=== PATIENT | male | born 1990 | race African-American/Black ===

== ENCOUNTER 2021-09-11 16:55 | Emergency (ER) | payer SELFPAY ==
[~2021-09-11] VITALS: Ht 165.1 cm; Wt 68.0 kg
--- NOTE | 2021-09-11 18:56 | NUR ---
THE PATIENT IS ALERT TO VERBAL STIMULI BY OPENING EYES AND DOING HAND GESTURES. UNABLE TO INSERT LINE OR GET URINE FROM THE PATIENT AT THIS TIME DUE TO PATIENT REFUSAL MANIFESTED BY SHAKING HANDS SIGN OF REFUSAL. DR SCHMITT MADE AWARE.
[2021-09-11] MEDS ORDERED: NALOXONE HCL 0.4 MG/ML AMPUL IV ONE (19:00)
[2021-09-11] MEDS ORDERED: IV NS 0.9% 1,000 ML BAG IV ONE (19:00)
[2021-09-11] MEDS ORDERED: diphenhydrAMINE HCL 50 MG/ML VIAL IM ONE (19:30)
[2021-09-11] MEDS ORDERED: HALOPERIDOL LACTATE INJ 5 MG/ML VIAL IM ONE (19:30)
--- NOTE | 2021-09-11 19:45 | NUR ---
blood work collected sent to lab
[2021-09-11 20:03] LABS: BASOPHILS % (AUTO) 0.5 % (0.0-2.0); HEMATOCRIT 38 % (39-51); HEMOGLOBIN 12.1 g/dL (13.5-17.5); LYMPHOCYTES # (AUTO) 2.5 K/uL (0.8-4.8); LYMPHOCYTES % (AUTO) 28.4 % (20.0-44.0); MEAN CORPUSCULAR HGB CONC 32 g/dl (31.0-36.0); MEAN CORPUSCULAR VOLUME 78 fL (80-96); MONOCYTES % (AUTO) 11.5 % (2.0-12.0); NEUTROPHILS # (AUTO) 5.1 K/uL (1.8-8.9); NEUTROPHILS % (AUTO) 57.6 % (43.0-81.0); PLATELET COUNT (AUTO) 359 K/uL (150-450); RED BLOOD CELL COUNT(AUTO) 4.79 MIL/uL (4.5-6.0); WHITE BLOOD COUNT (AUTO) 8.9 K/uL (4.3-11.0)
[2021-09-11 20:15] LABS: CALCIUM, SERUM 8.1 mg/dL (8.5-10.1); CARBON DIOXIDE 24 mmol/L (21-32); CHLORIDE 106 mmol/L (98-107); CREATININE 0.8 mg/dL (0.6-1.3); GLUCOSE 88 mg/dL (74-106); POTASSIUM 3.9 mmol/L (3.5-5.1); SODIUM SERUM 140 mmol/L (136-145); UREA NITROGEN, BLOOD 16 mg/dL (7-18)
[2021-09-11 20:22] LABS: ALANINE AMINOTRANSFERASE 27 U/L (12-78); ALBUMIN 3.4 g/dL (3.4-5.0); ALKALINE PHOSPHATASE 114 U/L (46-116); ASPARTATE AMINOTRANSFERASE 38 U/L (15-37); BILIRUBIN,DIRECT 0.1 mg/dL (0.0-0.2); BILIRUBIN,TOTAL 0.4 mg/dL (0.2-1.0); TOTAL PROTEIN, SERUM 7.2 g/dL (6.4-8.2)
[2021-09-11 20:23] LABS: ACETAMINOPHEN < 2 ug/ml (10-30)
--- NOTE | 2021-09-11 22:45 | NUR ---
PT TAKEN TO CT
[2021-09-11 22:53] LABS: BILIRUBIN,URINE NEGATIVE (NEGATIVE); COLOR,URINE YELLOW (YELLOW); LEUKOCYTE ESTERASE ,URINE NEGATIVE (NEGATIVE); NITRITE, URINE NEGATIVE (NEGATIVE); PROTEIN,URINE TRACE mg/dl (NEGATIVE); UGLUCOSE NEGATIVE (NEGATIVE); UROBILINOGEN,URINE 0.2 EU/dL (0.2)
--- NOTE | 2021-09-11 22:55 | NUR ---
PT RETURNED FROM CT
[2021-09-12 00:06] VITALS: BP 129/66
--- NOTE | 2021-09-12 05:42 | NUR ---
Patient discharged to home in stable condition. Written and verbal after care instructions given. Patient verbalizes understanding of instruction.
== END 2021-09-12 05:42 | disposition home or self-care (01) ==
LOC: ER 16:57 → EDBD 16:57 → ER 09-12 05:42
DX: R41.82 Altered mental status, unspecified (principal); F10.129 Alcohol abuse with intoxication, unspecified; R94.31 Abnormal electrocardiogram [ECG] [EKG]; Z59.00 Homelessness unspecified; Y90.9 Presence of alcohol in blood, level not specified
CPT/HCPCS: 36415; 70450; 71045; 80048; 80076; 80143; 80307; 81003; 85025; 93005; 96360; 99285; J7030 ×2